=== PATIENT | female | born 1975 | race Caucasian/White ===

== ENCOUNTER 2018-01-22 19:47 | Emergency (ER) | payer BC ==
--- NOTE | 2018-01-22 21:47 | EDPHYS ---
Physician Documentation [facility] Name: Jazmin Erickson Age: 42 yrs Sex: Female : 1975 Arrival Date: 01/22/2018 Time: 19:52 Bed 20 Private MD: ED Physician Brigido Frias HPI: 01/22 21:02 This 42 yrs old Female presents to ER via Ambulatory with complaints of jr8 Finger Injury. 21:02 The patient or guardian reports pain, swelling, tenderness. The complaints affect the jr8 right middle finger . Context: The problem was sustained at home, resulted from a crush injury, a direct blow. Onset: The symptoms/episode began/occurred acutely, 1 week(s) ago. Modifying factors: The symptoms are alleviated by nothing, the symptoms are aggravated by movement. Associated signs and symptoms: The patient has no apparent associated signs or symptoms. Severity of symptoms: At their worst the symptoms were mild, in the emergency department the symptoms are unchanged. The patient has not experienced similar symptoms in the past. The patient has not recently seen a physician. Patient stated that she smashed her finger about 1 week ago. Stated that she did not think anything of it until today when she noticed it swelling again. Continued to have pain but bruising has improved . 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 - Social history:: Smoking status: Patient/guardian denies using tobacco. ROS: 21:02 Eyes: Negative for injury, pain, redness, and discharge, ENT: Negative for injury, jr8 pain, and discharge, Neck: Negative for injury, pain, and swelling, Cardiovascular: Negative for chest pain, palpitations, and edema, Respiratory: Negative for shortness of breath, cough, wheezing, and pleuritic chest pain, Abdomen/GI: Negative for abdominal pain, nausea, vomiting, diarrhea, and constipation, Back: Negative for injury and pain, Skin: Negative for injury, rash, and discoloration, Neuro: Negative for headache, weakness, numbness, tingling, and seizure. 21:02 MS/extremity: Positive for ecchymosis, pain, swelling, tenderness, of the right middle finger . Exam: 21:02 Eyes: Pupils equal round and reactive to light, extra-ocular motions intact. Lids and jr8 lashes normal. Conjunctiva and sclera are non-icteric and not injected. Cornea within normal limits. Periorbital areas with no swelling, redness, or edema. ENT: Nares patent. No nasal discharge, no septal abnormalities noted. Tympanic membranes are normal and external auditory canals are clear. Oropharynx with no redness, swelling, or masses, exudates, or evidence of obstruction, uvula midline. Mucous membranes moist. Neck: Trachea midline, no thyromegaly or masses palpated, and no cervical lymphadenopathy. Supple, full range of motion without nuchal rigidity, or vertebral point tenderness. No Meningismus. Cardiovascular: Regular rate and rhythm with a normal S1 and S2. No gallops, murmurs, or rubs. Normal PMI, no JVD. No pulse deficits. Respiratory: Lungs have equal breath sounds bilaterally, clear to auscultation and percussion. No rales, rhonchi or wheezes noted. No increased work of breathing, no retractions or nasal flaring. Abdomen/GI: Soft, non-tender, with normal bowel sounds. No distension or tympany. No guarding or rebound. No evidence of tenderness throughout. Back: No spinal tenderness. No costovertebral tenderness. Full range of motion. Skin: Warm, dry with normal turgor. Normal color with no rashes, no lesions, and no evidence of cellulitis. Neuro: Awake and alert, GCS 15, oriented to person, place, time, and situation. Cranial nerves II-XII grossly intact. Motor strength 5/5 in all extremities. Sensory grossly intact. Cerebellar exam normal. Normal gait. 21:02 Musculoskeletal/extremity: Extremities: grossly normal except: noted in the right middle finger : ecchymosis, pain, swelling, tenderness, ROM: intact in all extremities, Circulation is intact in all extremities. Sensation intact. no obvious deformity noted on exam . Vital Signs: 20:21 BP 135 / 80; Pulse 76; Resp 18; Temp 98.2; Pulse Ox 100% on R/A; Weight 52.16 kg; aj Height 4 ft. 11 in. (149.86 cm); Pain 6/10; 21:32 BP 119 / 76; Pulse 69; Resp 16; Pulse Ox 99% on R/A; mt 20:21 Body Mass Index 23.23 (52.16 kg, 149.86 cm) aj MDM: 20:43 Patient medically screened. jr8 21:46 Data reviewed: vital signs, nurses notes, radiologic studies, plain films, and as a jr8 result, I will discharge patient. Data interpreted: Pulse oximetry: on room air is 99 %. Interpretation: normal. Counseling: I had a detailed discussion with the patient and/or guardian regarding: the historical points, exam findings, and any diagnostic results supporting the discharge/admit diagnosis, radiology results, the need for outpatient follow up, a orthopedic surgeon, to return to the emergency department if symptoms worsen or persist or if there are any questions or concerns that arise at home. 01/22 20:23 Order name: XRAY Hand RIGHT 3 View aj Administered Medications: No medications were administered Disposition: 01/23 07:57 Co-signature as Attending Physician, Brigido Frias MD I agree with the assessment and everett plan of care. Disposition: 01/22/18 21:46 Discharged to Home. Impression: Contusion of finger without damage to nail. - Condition is Stable. - Discharge Instructions: Contusion. - Medication Reconciliation Form, Thank You Letter, Antibiotic Education, Prescription Opioid Use form. - Follow up: Catalino Delaney MD; When: 7 - 10 days; Reason: If symptoms return, Recheck today's complaints, Continuance of care, Re-evaluation by your physician. - Problem is new. - Symptoms have improved. Signatures: Dispatcher [employer] Kamilah Richards, RN Brigido Wilkins MD MD cha Roszak, Josh, PA PA jr8 Sadiq Sultana, RN RN bp
--- NOTE | 2018-01-22 21:47 | ER ---
Nurse's Notes [facility] Name: Jazmin Erickson Age: 42 yrs Sex: Female : 1975 Arrival Date: 01/22/2018 Time: 19:52 Bed 20 Private MD: Diagnosis: Contusion of finger without damage to nail Presentation: 01/22 20:20 Presenting complaint: Patient states: Crushed right 3 rd digit 5 days ago between metal aj pot and steel grating. Reports pain increased today. Swelling present. Transition of care: patient was not received from another setting of care. Onset of symptoms was January 17, 2018. Initial Sepsis Screen: Does the patient meet any 2 criteria? No. Patient's initial sepsis screen is negative. Does the patient have a suspected source of infection? No. Patient's initial sepsis screen is negative. Care prior to arrival: None. 20:20 Method Of Arrival: Ambulatory 20:20 Acuity: ILYA 4 aj Triage Assessment: 20:21 General: Appears in no apparent distress. comfortable, Behavior is calm, cooperative, aj appropriate for age. Pain: Complains of pain in dorsal aspect of middle phalanx of right middle finger Pain currently is 6 out of 10 on a pain scale. Neuro: Level of Consciousness is awake, alert, obeys commands, Oriented to person, place, time, situation. Respiratory: Airway is patent Respiratory effort is even, unlabored, Respiratory pattern is regular, symmetrical. Derm: Skin is intact, is healthy with good turgor, Skin is pink, warm \T\ dry. normal. Musculoskeletal: Range of motion: intact in all extremities, Swelling present in dorsal aspect of middle phalanx of right middle finger. Injury Description: Bruise sustained to dorsal aspect of middle phalanx of right middle finger. 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 - Social history:: Smoking status: Patient/guardian denies using tobacco. Screenin:47 Abuse screen: Denies threats or abuse. Denies injuries from another. Nutritional bp screening: No deficits noted. Tuberculosis screening: No symptoms or risk factors identified. Fall Risk None identified. Assessment: 20:45 Reassessment: RECD 42YO WF AMBULATORY FROM TRIAGE, C/O R 3RD FINGER PAIN x1WK AFTER bp CRUSH INJURY. PT FINGER NEURO INTACT. General: Appears in no apparent distress. comfortable, Behavior is calm, cooperative, appropriate for age. Pain: Complains of pain in dorsal aspect of middle phalanx of right middle finger and dorsal aspect of proximal phalanx of right middle finger. Neuro: Level of Consciousness is awake, alert, obeys commands, Oriented to person, place, time, situation, Appropriate for age. Cardiovascular: No deficits noted. Respiratory: Airway is patent Respiratory effort is even, unlabored, Respiratory pattern is regular, symmetrical. GI: No signs and/or symptoms were reported involving the gastrointestinal system. : No signs and/or symptoms were reported regarding the genitourinary system. EENT: No signs and/or symptoms were reported regarding the EENT system. Derm: No signs and/or symptoms reported regarding the dermatologic system. Musculoskeletal: Circulation, motion, and sensation intact. Range of motion: intact in all extremities. 21:54 Reassessment: PT D/C HOME AMBULATORY, DX WITH CONTUSION OF FINGER. bp Vital Signs: 20:21 BP 135 / 80; Pulse 76; Resp 18; Temp 98.2; Pulse Ox 100% on R/A; Weight 52.16 kg; aj Height 4 ft. 11 in. (149.86 cm); Pain 6/10; 21:32 BP 119 / 76; Pulse 69; Resp 16; Pulse Ox 99% on R/A; mt 20:21 Body Mass Index 23.23 (52.16 kg, 149.86 cm) aj ED Course: 19:52 Patient arrived in ED. al2 20:21 Triage completed. aj 20:21 Arm band placed on left wrist. Patient placed in waiting room, Patient notified of wait aj time. X-ray ordered. 20:38 Sadiq Sultana, JUDITH is Primary Nurse. bp 20:42 Kamran Rios PA is PHCP. jr8 20:42 Brigido Frias MD is Attending Physician. jr8 20:47 Patient has correct armband on for positive identification. Bed in low position. Call bp light in reach. Side rails up X2. 21:22 X-ray completed. Portable x-ray completed in exam room. Patient tolerated procedure ag1 well. 21:23 XRAY Hand RIGHT 3 View In Process Unspecified. EDMS 21:46 Catalino Delaney MD is Referral Physician. jr8 21:55 No provider procedures requiring assistance completed. Patient did not have IV access bp during this emergency room visit. Administered Medications: No medications were administered Outcome: :46 Discharge ordered by . christine 21:55 Discharged to home ambulatory. bp 21:55 Condition: stable 21:55 Discharge instructions given to patient, Instructed on discharge instructions, follow up and referral plans. Demonstrated understanding of instructions, follow-up care. 21:55 Patient left the ED. bp Signatures: Dispatcher [employer] EDLA Kamilah Reyes, RN RN Kamran De Luna PA PA jr8 Hafsa Lucia1 Jeanine Bañuelos mt, Brian RN RN Bhargavi Ross2
--- NOTE | 2018-01-22 21:58 | RAD REPORT ---
EXAM DESCRIPTION: RAD - Hand Right 3 View - 01/22/2018 9:24 pm CLINICAL HISTORY: Right hand pain status post injury FINDINGS: No fracture or dislocation is seen.
== END 2018-01-22 21:55 | disposition home or self-care (01) ==
LOC: ER 19:47
DX: S60.031A Contusion of right middle finger without damage to nail, initial encounter (principal); W23.0XXA Caught, crushed, jammed, or pinched between moving objects, initial encounter; Y92.019 Unspecified place in single-family (private) house as the place of occurrence of the external cause
CPT/HCPCS: 99283

== ENCOUNTER 2018-03-31 16:33 | Emergency (ER) | payer BC ==
[2018-03-31 17:51] LABS: Urine Blood NEGATIVE (NEG); Urine Glucose NEGATIVE (NEG); Urine Protein NEGATIVE (NEG); Urine Specific Gravity 1.015 (1.005-1.030); Urine pH 6.5 (5.0-7.0)
[2018-03-31] MEDS ORDERED: KETOROLAC 30 MG/ML INJ ONE (17:53)
--- NOTE | 2018-03-31 18:02 | RAD REPORT ---
EXAM DESCRIPTION: CT - Stone Protocol - 03/31/2018 5:44 pm CLINICAL HISTORY: Abdominal pain. Left flank pain COMPARISON: January 2017 TECHNIQUE: Computed axial tomography of the abdomen pelvis was obtained without oral or IV contrast. Lack of IV and oral contrast limits evaluation of solid organs, bowel, and vessels. Coronal reformat derrell images were obtained and reviewed. All CT scans are performed using dose optimization technique as appropriate and may include automated exposure control or mA/KV adjustment according to patient size. FINDINGS: A renal calculus is not seen. An ureteral calculus is not noted. A bladder calculus is not present. The liver, spleen, pancreas and adrenals appear grossly normal There is no evidence of diverticulitis. The appendix appears normal A 38 millimeter cystic right adnexal mass is present. Significant free fluid is not noted IMPRESSION: Negative for a genitourinary calculus 38 millimeter right adnexal mass may represent an ovarian cyst. Followup ultrasound in a couple month s is recommended to assess stability/resolution
--- NOTE | 2018-03-31 18:14 | EDPHYS ---
Physician Documentation [facility] Name: Jazmin Erickson Age: 42 yrs Sex: Female : 1975 Arrival Date: 03/31/2018 Time: 16:36 Bed 28 Private MD: None, None ED Physician Peng Ramirez HPI: 03/31 18:07 This 42 yrs old Female presents to ER via Ambulatory with complaints of Flank gs Pain. 18:07 The patient complains of pain in the left low back. The pain radiates to the left lower gs quadrant. Onset: The symptoms/episode began/occurred 2 day(s) ago. Modifying factors: The symptoms are alleviated by nothing. the symptoms are aggravated by nothing. Associated signs and symptoms: Pertinent negatives: fever, urinary frequency. Severity of pain: At its worst the pain was moderate in the emergency department the pain has improved mildly. The patient has experienced similar episodes in the past, a few times. 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 - Social history:: Smoking status: Patient/guardian denies using tobacco, Patient/guardian denies using alcohol. - Ebola Screening: : Patient negative for fever greater than or equal to 101.5 degrees Fahrenheit, and additional compatible Ebola Virus Disease symptoms Patient denies exposure to infectious person Patient denies travel to an Ebola-affected area in the 21 days before illness onset. ROS: 18:07 All other systems are negative. gs 18:15 Abdomen/GI: Negative for bowel incontinence. gs 18:15 : Negative for bladder incontinence. Exam: 18:07 Head/Face: Normocephalic, atraumatic. Eyes: Pupils equal round and reactive to light, gs extra-ocular motions intact. Lids and lashes normal. Conjunctiva and sclera are non-icteric and not injected. Cornea within normal limits. Periorbital areas with no swelling, redness, or edema. ENT: Nares patent. No nasal discharge, no septal abnormalities noted. Tympanic membranes are normal and external auditory canals are clear. Oropharynx with no redness, swelling, or masses, exudates, or evidence of obstruction, uvula midline. Mucous membranes moist. Neck: Trachea midline, no thyromegaly or masses palpated, and no cervical lymphadenopathy. Supple, full range of motion without nuchal rigidity, or vertebral point tenderness. No Meningismus. Chest/axilla: Normal chest wall appearance and motion. Nontender with no deformity. No lesions are appreciated. Cardiovascular: Regular rate and rhythm with a normal S1 and S2. No gallops, murmurs, or rubs. Normal PMI, no JVD. No pulse deficits. Respiratory: Lungs have equal breath sounds bilaterally, clear to auscultation and percussion. No rales, rhonchi or wheezes noted. No increased work of breathing, no retractions or nasal flaring. Abdomen/GI: Soft, non-tender, with normal bowel sounds. No distension or tympany. No guarding or rebound. No evidence of tenderness throughout. Back: No spinal tenderness. No costovertebral tenderness. Full range of motion. Skin: Warm, dry with normal turgor. Normal color with no rashes, no lesions, and no evidence of cellulitis. MS/ Extremity: Pulses equal, no cyanosis. Neurovascular intact. Full, normal range of motion. Neuro: Awake and alert, GCS 15, oriented to person, place, time, and situation. Cranial nerves II-XII grossly intact. Motor strength 5/5 in all extremities. Sensory grossly intact. Cerebellar exam normal. Normal gait. 18:07 Constitutional: The patient appears alert, awake. Vital Signs: 16:39 BP 123 / 77; Pulse 84; Resp 18; Temp 98.3(O); Pulse Ox 98% on R/A; Weight 52.16 kg; Height 4 ft. 11 in. (149.86 cm); Pain 8/10; 17:54 BP 108 / 70; Pulse 58; Resp 18; Pulse Ox 98% ; tl3 18:43 BP 106 / 72; Pulse 56; Resp 18; Pulse Ox 99% ; tl3 16:39 Body Mass Index 23.23 (52.16 kg, 149.86 cm) MDM: 16:56 Patient medically screened. 18:07 Differential diagnosis: nephrolithiasis, pyelonephritis, back sprain. Data reviewed: vital signs, nurses notes. Response to treatment: the patient's symptoms have markedly improved after treatment. 03/31 17:42 Order name: Urine Dipstick--Ancillary (enter results); Complete Time: 17:59 ag 03/31 17:42 Order name: Urine --Ancillary (enter results); Complete Time: 17:59 ag 03/31 16:41 Order name: Urine Dipstick-Ancillary (obtain specimen); Complete Time: 18:45 hj 03/31 16:58 Order name: CT Stone Protocol; Complete Time: 18:07 Administered Medications: 17:54 Drug: TORadol 30 mg Route: IM; Site: right gluteus; tl3 18:44 Follow up: Response: Pain is decreased tl3 Disposition: 03/31/18 18:13 Discharged to Home. Impression: Low back pain. - Condition is Stable. - Discharge Instructions: Back Pain, Adult. - Prescriptions for Naprosyn 500 mg Oral Tablet - take 1 tablet by ORAL route 2 times per day As needed take with food; 30 tablet. - Medication Reconciliation Form, Thank You Letter, Antibiotic Education, Prescription Opioid Use form. - Follow up: Private Physician; When: 2 - 3 days; Reason: Re-evaluation by your physician. Signatures: Dispatcher [employer] EDNM Lio Garcia RN RN Peng Ramirez MD MD Thelma Hunt RN RN tl3 Corrections: (The following items were deleted from the chart) 18:46 18:13 03/31/2018 18:13 Discharged to Home. Impression: Low back pain. Condition is tl3 Stable. Forms are Medication Reconciliation Form, Thank You Letter, Antibiotic Education, Prescription Opioid Use. Follow up: Private Physician; When: 2 - 3 days; Reason: Re-evaluation by your physician.
--- NOTE | 2018-03-31 18:14 | ER ---
Nurse's Notes [facility] Name: Jazmin Erickson Age: 42 yrs Sex: Female : 1975 Arrival Date: 03/31/2018 Time: 16:36 Bed 28 Private MD: None, None Diagnosis: Low back pain Presentation: 03/31 16:36 Presenting complaint: Patient states: i started having L lower flank pain that started hj last Saturday, denies burning urination, reports chills; denies blood in urine; reports nausea;. Transition of care: patient was not received from another setting of care. Onset of symptoms was March 31, 2018. Risk Assessment: Do you want to hurt yourself or someone else? Patient reports no desire to harm self or others. Initial Sepsis Screen: Does the patient meet any 2 criteria? No. Patient's initial sepsis screen is negative. Does the patient have a suspected source of infection? No. Patient's initial sepsis screen is negative. Care prior to arrival: None. 16:36 Method Of Arrival: Ambulatory 16:36 Acuity: ILYA 3 hj Triage Assessment: 16:38 General: Appears in no apparent distress. uncomfortable, Behavior is calm, cooperative, hj appropriate for age. Pain: Complains of pain in left low back Pain currently is 8 out of 10 on a pain scale. 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 - Social history:: Smoking status: Patient/guardian denies using tobacco, Patient/guardian denies using alcohol. - Ebola Screening: : Patient negative for fever greater than or equal to 101.5 degrees Fahrenheit, and additional compatible Ebola Virus Disease symptoms Patient denies exposure to infectious person Patient denies travel to an Ebola-affected area in the 21 days before illness onset. Screenin:38 Abuse screen: Denies threats or abuse. Denies injuries from another. Nutritional hj screening: No deficits noted. Tuberculosis screening: No symptoms or risk factors identified. Fall Risk None identified. Assessment: 16:49 General: Appears uncomfortable, slender, well groomed, well developed, well nourished, tl3 Behavior is calm, cooperative, appropriate for age. Pain: Complains of pain in back and left low back. Neuro: Level of Consciousness is awake, alert, obeys commands, Oriented to person, place, time, situation, Appropriate for age. Cardiovascular: Heart tones S1 S2 present Patient's skin is warm and dry. Respiratory: Airway is patent Respiratory effort is even, unlabored, Respiratory pattern is regular, symmetrical, Breath sounds are clear bilaterally. GI: No signs and/or symptoms were reported involving the gastrointestinal system. : Reports pain in left flank(s), since Saturday urinary frequency. EENT: No signs and/or symptoms were reported regarding the EENT system. Derm: No signs and/or symptoms reported regarding the dermatologic system. Musculoskeletal: No signs and/or symptoms reported regarding the musculoskeletal system. 17:54 Reassessment: Patient appears in no apparent distress at this time. No changes from tl3 previously documented assessment. Patient and/or family updated on plan of care and expected duration. Pain level reassessed. Patient is alert, oriented x 3, equal unlabored respirations, skin warm/dry/pink. 18:43 Reassessment: Patient appears in no apparent distress at this time. No changes from tl3 previously documented assessment. Patient and/or family updated on plan of care and expected duration. Pain level reassessed. Patient is alert, oriented x 3, equal unlabored respirations, skin warm/dry/pink. Vital Signs: 16:39 BP 123 / 77; Pulse 84; Resp 18; Temp 98.3(O); Pulse Ox 98% on R/A; Weight 52.16 kg; hj Height 4 ft. 11 in. (149.86 cm); Pain 8/10; 17:54 BP 108 / 70; Pulse 58; Resp 18; Pulse Ox 98% ; tl3 18:43 BP 106 / 72; Pulse 56; Resp 18; Pulse Ox 99% ; tl3 16:39 Body Mass Index 23.23 (52.16 kg, 149.86 cm) ED Course: 16:36 Patient arrived in ED. mr 16:36 None, None is Private Physician. mr 16:37 Triage completed. hj 16:38 Arm band placed on right wrist. hj 16:40 Patient has correct armband on for positive identification. Placed in gown. Bed in low hj position. Call light in reach. Side rails up X 1. 16:48 Peng Ramirez MD is Attending Physician. 16:49 Thelma Hunt, RN is Primary Nurse. tl3 16:49 No provider procedures requiring assistance completed. tl3 17:[address] 17:44 CT completed. Patient tolerated procedure well. Patient moved back from CT. vm2 17:45 CT Stone Protocol In Process Unspecified. EDMS 18:43 Patient did not have IV access during this emergency room visit. tl3 Administered Medications: 17:54 Drug: TORadol 30 mg Route: IM; Site: right gluteus; tl3 18:44 Follow up: Response: Pain is decreased tl3 Outcome: 18:13 Discharge ordered by . 18:43 Discharged to home ambulatory. tl3 18:43 Condition: good 18:43 Discharge instructions given to patient, Instructed on discharge instructions, follow up and referral plans. medication usage, Demonstrated understanding of instructions, follow-up care, medications, Prescriptions given X 1. 18:46 Patient left the ED. tl3 Signatures: Dispatcher [employer] EDLA AmatoSolange mr Duarte Sandy Lio Cifuentes RN RN Tatiana Feliciano 2 Peng Ramirez MD MD Thelma Hunt, RN RN tl3 Corrections: (The following items were deleted from the chart) 16:41 16:39 Pulse 84bpm; Resp 18bpm; Pulse Ox 98% RA; Temp 98.3F Oral; 52.16 kg; Height 4 ft. hj 11 in.; BMI: 23.2; Pain 8/10; hj
== END 2018-03-31 18:46 | disposition home or self-care (01) ==
LOC: ER 16:33
DX: M54.5 Low back pain (principal)
CPT/HCPCS: 74176; 76377; 81003; 81025; 96372; 99284

== ENCOUNTER 2019-07-20 10:08 | Emergency (ER) | payer BC, OTHER ==
[2019-07-20] MEDS ORDERED: PHENAZOPYRIDINE 100MG TAB PO ONE (10:36)
[2019-07-20 11:07] LABS: Urine Bacteria 20-50 /HPF (<20); Urine Culture Reflex Order REFLEXED; Urine RBC >50 /HPF (NONE SEEN)
--- NOTE | 2019-07-20 11:19 | RAD REPORT ---
EXAM DESCRIPTION: CT - Stone Protocol - 07/20/2019 10:48 am CLINICAL HISTORY: Dysuria, pelvic pain and pressure, prior hysterectomy COMPARISON: CT March 2018, January 2017 TECHNIQUE: Axial 3 mm thick images were obtained without oral or IV contrast. The [id number] span s the entirety of the system including uppermost abdomen and lung bases. All CT scans are performed using dose optimization technique as appropriate and may include automated exposure control or mA/KV adjustment according to patient size. FINDINGS: No hydronephrosis is present and no obstructing ureteral calculi. No suspicious renal mass es. Isodense masses and pyelonephritis are not excluded on a stone protocol CT scan. Urinary bladder is mostly contracted limiting assessment. No bladder calculi seen. There are numerous phleboliths braden ng the pelvic floor. No significant adrenal finding. Uterus is absent. No left ovary abnormality seen . In the anterior right adnexa there is a 3.1 centimeter cyst unchanged from March 2018 and probably u nchanged from January 2017. This is to be a persistent ovarian or paraovarian cyst. Small calcification a long the right lateral margin is present at the capsule. This is potentially calcification in the rou nd ligament rather than the cyst. No fat component. Imaged portions of the liver, spleen and pancreas show no suspicious findings on non-contrast imaging . No gallbladder or biliary tree abnormality identified. No suspicious bowel findings. Moderately large stool volume present in the right-side of the colon. P atient has a low-lying transverse colon. Hyperdensity of the left-side bowel content may indicate ing ested medication. Patient did not receive any oral contrast for this study. No hernia, mass or bulky lymphadenopathy noted. No free air, free fluid or inflammatory stranding. No significant bony abnormality. IMPRESSION: No hydronephrosis, obstructing calculus or acute finding seen. Isodense masses and pyelonephritis are not excluded on stone protocol technique. No acute finding identified on this study. Nonacute findings are detailed in the body of the report w ith no significant change dating back to at least March 2018.
--- NOTE | 2019-07-20 11:37 | ER ---
Nurse's Notes [facility] Name: Jazmin Erickson Age: 44 yrs Sex: Female : 1975 Arrival Date: 07/20/2019 Time: 10:11 Bed 15 Private MD: Diagnosis: Urinary tract infection, site not specified Presentation: 07/20 10:19 Presenting complaint: Patient states: "I feel like I have to go to the bathroom jl7 constantly." x 1 week, constant pressure, denies burning. Transition of care: patient was not received from another setting of care. Onset of symptoms was July 13, 2019. Risk Assessment: Do you want to hurt yourself or someone else? Patient reports no desire to harm self or others. Initial Sepsis Screen: Does the patient meet any 2 criteria? No. Patient's initial sepsis screen is negative. Does the patient have a suspected source of infection? No. Patient's initial sepsis screen is negative. Care prior to arrival: None. 10:19 Method Of Arrival: Ambulatory jl7 10:31 Acuity: ILYA 3 tw2 TELEPATHIST: 10:20 LMP N/A - Hysterectomy jl7 Historical: - Allergies: 10:20 VENLAFAXINE; jl7 - Home Meds: 10:20 None [Active]; jl7 - PMHx: 10:20 None; jl7 - PSHx: 10:20 Hysterectomy; jl7 - Immunization history:: Adult Immunizations not up to date. - Social history:: Smoking status: Patient/guardian denies using tobacco. - Ebola Screening: : No symptoms or risks identified at this time. Screenin:27 Abuse screen: Denies threats or abuse. Nutritional screening: No deficits noted. tw2 Tuberculosis screening: No symptoms or risk factors identified. Fall Risk None identified. Assessment: 10:28 General: Appears in no apparent distress. Behavior is calm, cooperative, appropriate tw2 for age. Pain: Complains of pain in right upper quadrant and right lower quadrant. Neuro: Level of Consciousness is awake, alert, obeys commands, Oriented to person, place, time, situation. Cardiovascular: Heart tones S1 S2 Patient's skin is warm and dry. Respiratory: Airway is patent Respiratory effort is even, unlabored, Respiratory pattern is regular, symmetrical, Breath sounds are clear bilaterally. GI: Abdomen is flat, Bowel sounds present X 4 quads. Reports lower abdominal pain, upper abdominal pain. : Reports urinary frequency. EENT: No signs and/or symptoms were reported regarding the EENT system. Derm: No signs and/or symptoms reported regarding the dermatologic system. Musculoskeletal: Range of motion: intact in all extremities. 10:28 Reassessment: pt drinking starbucks coffee at this time, pt asked to not drink or eat tw2 anything until seen by a provider, pt agreeable. 10:31 Reassessment: provider at bedside at this time. tw2 Vital Signs: 10:20 BP 126 / 72; Pulse 75; Resp 16; Temp 97.9(O); Pulse Ox 100% on R/A; jl7 11:49 BP 108 / 69; Pulse 74; Resp 16 S; Pulse Ox 100% on R/A; jl7 ED Course: 10:11 Patient arrived in ED. mr 10:15 Adri[facility] Peterson [facility]C [facility] kb 10:15 Eagle Gloria MD is Attending Physician. kb 10:20 Triage completed. jl7 10:20 Arm band placed on right wrist. jl7 10:26 Phuong Olsen, RN is Primary Nurse. tw2 10:27 Bed in low position. Call light in reach. tw2 10:48 CT completed. Patient tolerated procedure well. Patient moved back from CT. jj2 10:48 CT Stone Protocol In Process Unspecified. EDMS 11:49 No provider procedures requiring assistance completed. Patient did not have IV access jl7 during this emergency room visit. Administered Medications: 10:39 Drug: Pyridium 200 mg Route: PO; tw2 11:49 Follow up: Response: No adverse reaction jl7 11:49 Drug: Macrobid 100 mg Route: PO; jl7 11:49 Follow up: Response: Medication administered at discharge. jl7 Outcome: 11:35 Discharge ordered by . kb 11:50 Discharged to home ambulatory. jl7 11:50 Condition: stable 11:50 Discharge instructions given to patient, Instructed on discharge instructions, follow up and referral plans. medication usage, Demonstrated understanding of instructions, follow-up care, medications, Prescriptions given X 2. 11:50 Patient left the ED. jl7 Signatures: Dispatcher [employer] EDMS Adrianna Peterson FNP-C FNP-Ckb Rivera, Mary mr Ferrera, Nic jj2 Phuong Olsen RN RN tw2 Cinda Cordoba RN RN jl7 Corrections: (The following items were deleted from the chart) 10:31 10:19 Acuity: ILYA 4 jl7 tw2
--- NOTE | 2019-07-20 11:37 | EDPHYS ---
Physician Documentation [facility] Name: Jazmin Erickson Age: 44 yrs Sex: Female : 1975 Arrival Date: 07/20/2019 Time: 10:11 Bed 15 Private MD: ED Physician Eagle Gloria HPI: 07/20 11:32 This 44 yrs old Female presents to ER via Ambulatory with complaints of kb Urinary Problem. 11:32 The patient presents with urinary symptoms, frequency, hematuria, urgency. Onset: The kb symptoms/episode began/occurred 1 week(s) ago. Modifying factors: The symptoms are alleviated by nothing, the symptoms are aggravated by nothing. Associated signs and symptoms: Pertinent positives: hematuria, urinary frequency, Pertinent negatives: fever. Severity of symptoms: At their worst the symptoms were moderate, in the emergency department the symptoms are unchanged. The patient has not experienced similar symptoms in the past. The patient has not recently seen a physician. Pt reports urinary frequency, urgency and hematuria that started a week ago. States she tried drinking cranberry juice and more water but symptoms are getting worse. Reports suprapubic pain as well. Reports RUQ pain that is chronic due to gallbladder. States it flares up when she is stressed or eats the wrong thing. Reports she is under stress right now because she is going through menopause and it is causing a lot of hot flashes and emotional stress. . 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 - Social history:: Smoking status: Patient/guardian denies using tobacco. - Ebola Screening: : No symptoms or risks identified at this time. ROS: 11:31 Constitutional: Negative for fever, chills, and weight loss, Cardiovascular: Negative kb for chest pain, palpitations, and edema, Respiratory: Negative for shortness of breath, cough, wheezing, and pleuritic chest pain, Back: Negative for injury and pain, MS/Extremity: Negative for injury and deformity, Skin: Negative for injury, rash, and discoloration, Neuro: Negative for headache, weakness, numbness, tingling, and seizure. 11:31 Abdomen/GI: Positive for abdominal pain. 11:31 : Positive for urinary symptoms, urinary frequency, hematuria. Exam: 11:31 Constitutional: This is a well developed, well nourished patient who is awake, alert, kb and in no acute distress. Head/Face: Normocephalic, atraumatic. Neck: Trachea midline, no thyromegaly or masses palpated, and no cervical lymphadenopathy. Supple, full range of motion without nuchal rigidity, or vertebral point tenderness. No Meningismus. Chest/axilla: Normal chest wall appearance and motion. Nontender with no deformity. No lesions are appreciated. Cardiovascular: Regular rate and rhythm with a normal S1 and S2. No gallops, murmurs, or rubs. Normal PMI, no JVD. No pulse deficits. Respiratory: Lungs have equal breath sounds bilaterally, clear to auscultation and percussion. No rales, rhonchi or wheezes noted. No increased work of breathing, no retractions or nasal flaring. Back: No spinal tenderness. No costovertebral tenderness. Full range of motion. Skin: Warm, dry with normal turgor. Normal color with no rashes, no lesions, and no evidence of cellulitis. MS/ Extremity: Pulses equal, no cyanosis. Neurovascular intact. Full, normal range of motion. Neuro: Awake and alert, GCS 15, oriented to person, place, time, and situation. Cranial nerves II-XII grossly intact. Motor strength 5/5 in all extremities. Sensory grossly intact. Cerebellar exam normal. Normal gait. 11:31 Abdomen/GI: Inspection: abdomen appears normal, Bowel sounds: normal, in all quadrants, Palpation: soft, in all quadrants, mild abdominal tenderness, in the right upper quadrant, moderate abdominal tenderness, in the suprapubic area. Vital Signs: 10:20 BP 126 / 72; Pulse 75; Resp 16; Temp 97.9(O); Pulse Ox 100% on R/A; jl7 11:49 BP 108 / 69; Pulse 74; Resp 16 S; Pulse Ox 100% on R/A; jl7 MDM: 10:26 Patient medically screened. 11:31 Data reviewed: vital signs, nurses notes. Data interpreted: Pulse oximetry: on room air kb is 100 %. Interpretation: normal. Counseling: I had a detailed discussion with the patient and/or guardian regarding: the historical points, exam findings, and any diagnostic results supporting the discharge/admit diagnosis, lab results, radiology results, the need for outpatient follow up, a family practitioner, to return to the emergency department if symptoms worsen or persist or if there are any questions or concerns that arise at home. 07/20 10:27 Order name: Urine Microscopic Only; Complete Time: 11:13 kb 07/20 10:37 Order name: Urine Dipstick--Ancillary (enter results) bd 07/20 10:35 Order name: CT Stone Protocol; Complete Time: 11:21 kb 07/20 11:09 Order name: Urine Culture EDPR 07/20 10:27 Order name: Urine Test (obtain specimen); Complete Time: 10:32 kb 07/20 10:27 Order name: Urine Dipstick-Ancillary (obtain specimen); Complete Time: 10:32 kb Administered Medications: 10:39 Drug: Pyridium 200 mg Route: PO; tw2 11:49 Follow up: Response: No adverse reaction jl7 11:49 Drug: Macrobid 100 mg Route: PO; jl7 11:49 Follow up: Response: Medication administered at discharge. jl7 Disposition: 12:12 Co-signature as Attending Physician, Eagle Gloria MD. rn Disposition: 07/20/19 11:35 Discharged to Home. Impression: Urinary tract infection, site not specified. - Condition is Stable. - Discharge Instructions: Urinary Tract Infection, Adult, [id number]. - Prescriptions for Pyridium 200 mg Oral Tablet - take 1 tablet by ORAL route every 8 hours for 3 days; 9 tablet. Macrobid 100 mg Oral Capsule - take 1 capsule by ORAL route every 12 hours for 10 days; 20 capsule. - Medication Reconciliation Form, Thank You Letter, Antibiotic Education, Prescription Opioid Use, Work release form form. - Follow up: Emergency Department; When: As needed; Reason: Worsening of condition. Follow up: Private Physician; When: 2 - 3 days; Reason: Recheck today's complaints, Continuance of care, Re-evaluation by your physician. Signatures: Dispatcher [facility] Adrianna Peterson, AQUARIST-C AQUARIST-Eagle Booker MD MD rn Wise, Tara, RN RN tw2 Cinda Cordoba RN RN jl7 Corrections: (The following items were deleted from the chart) 11:37 11:32 Pt reports urinary frequency, urgency and hematuria that started a week ago. kb States she tried drinking cranberry juice and more water but symptoms are getting worse. Reports suprapubic pain as well. kb 11:50 11:35 07/20/2019 11:35 Discharged to Home. Impression: Urinary tract infection, site jl7 not specified. Condition is Stable. Forms are Work release form, Medication Reconciliation Form, Thank You Letter, Antibiotic Education, Prescription Opioid Use. Follow up: Emergency Department; When: As needed; Reason: Worsening of condition. Follow up: Private Physician; When: 2 - 3 days; Reason: Recheck today's complaints, Continuance of care, Re-evaluation by your physician. kb
[2019-07-20] MEDS ORDERED: NITROFURAN MACRO 100 MG CAP PO ONE (11:45)
[2019-07-20 12:06] VITALS: TEMP 97.9; O2SAT 100
[2019-07-20 12:07] VITALS: BP 108/69
[2019-07-20 14:36] LABS: Urine Blood 3+ (NEG); Urine Glucose NEGATIVE (NEG); Urine Protein 3+ (NEG); Urine Specific Gravity 1.025 (1.005-1.030); Urine pH 5.5 (5.0-7.0)
== END 2019-07-20 11:50 | disposition home or self-care (01) ==
LOC: ER 10:08
DX: N39.0 Urinary tract infection, site not specified (principal); Z88.8 Allergy status to other drugs, medicaments and biological substances
CPT/HCPCS: 74176; 76377; 81003; 81015; 87086; 87088; 99284

== ENCOUNTER 2019-10-07 06:15 | Day surgery (SDC) | payer OTHER ==
[2019-10-06 09:26] LABS: Urine Appearance CLEAR; Urine Bilirubin NEGATIVE (NEG); Urine Blood NEGATIVE (NEG); Urine Color YELLOW; Urine Glucose NEGATIVE (NEG); Urine Protein NEGATIVE (NEG); Urine Urobilinogen 0.2 mg/dL (0.2-1.0); Urine pH 6.5 (5.0-7.0)
[2019-10-06 09:27] LABS: Absolute Lymphocytes (CBC) 2.4 K/uL (0.7-4.9); Basophils % 0.6 % (0-1.3); Lymphocytes % 36.2 % (15.3-44.8); MPV 8.8 fL (7.6-11.3); RBC Red Blood Cell Count 4.88 M/uL (3.86-4.86)
[2019-10-06 09:36] LABS: Urine Microscopic Reflex NO UMIC
[2019-10-07] MEDS ORDERED: SCOPOLAMINE HYDROBROMIDE PATCH TD ONE (06:55)
[2019-10-07] MEDS ORDERED: Ringers Lactate 1,000 ML IV ONE ×2 (06:55→09:19)
[2019-10-07] MEDS ORDERED: BUPIVACAINE 0.25% PF 30 ML VIAL ONE (07:11)
[2019-10-07] MEDS ORDERED: propofoL 200 MG/20 ML VIAL IV ONE (07:22)
[2019-10-07] MEDS ORDERED: dexAMETHasone 10 MG/ML VIAL ONE (07:22)
[2019-10-07] MEDS ORDERED: FENTANYL CITR 100 MCG/2 ML ONE ×2 (07:22→08:35)
[2019-10-07] MEDS ORDERED: ROCURONIUM 50 MG/5 ML VIAL IV ONE (07:22)
[2019-10-07] MEDS ORDERED: NS 0.9% VIAL 0 ML ONE (07:23)
[2019-10-07] MEDS ORDERED: LIDOCAINE 2% MPF 5 ML VIAL ONE (07:23)
[2019-10-07] MEDS ORDERED: DIPHENHYDRAMINE 50 MG/ML VIAL ONE (07:23)
[2019-10-07] MEDS ORDERED: MIDAZOLAM HCL 2 MG/2 ML INJ ONE (07:23)
[2019-10-07] MEDS ORDERED: VECURONIUM 10 MG/VIAL IV ONE (07:24)
[2019-10-07] MEDS ORDERED: ONDANSETRON 4 MG/2 ML VIAL ONE (07:24)
[2019-10-07] MEDS ORDERED: KETOROLAC 30 MG/ML INJ ONE (09:12)
[2019-10-07] MEDS ORDERED: GLYCOPYRROLATE 0.2 MG/ML SYR ONE (09:17)
[2019-10-07] MEDS ORDERED: NEOSTIGMINE 1 MG/ML -5 ML ONE (09:17)
[2019-10-07] MEDS ORDERED: Mastisol Adhesive Liq ONE (09:26)
[2019-10-07] MEDS ORDERED: HYDROCODONE/APAP 5/325 MG TAB ONE (10:45)
[2019-10-07 12:56] VITALS: BP 114/70; TEMP 98.3; O2SAT 98
--- NOTE | 2019-10-07 19:59 | OP ---
Date of Procedure: 10/07/2019 Surgeon: Kiki Rivera MD Maintenance Team Member: first drea Polk. Preoperative Diagnoses: Pelvic pain, right adnexal mass, and history of endometriosis. Postoperative Diagnoses: Extensive adhesions of the left tube to the sidewall and the ureter distally, adhesions of the sigmoid and left colon to the left sidewall, and multiple windows in the epiploicae for potential internal hernias. Procedures Performed: Diagnostic laparoscopy, bilateral salpingo-oophorectomy, and extensive lysis of adhesions and removal of epiploicae to resolve the areas for herniation within the sigmoid epiploicae, left ureterolysis Estimated Blood Loss: Minimal. Specimens: Bilateral tubes and ovaries. Complications: No complications. Drains: No drains. Condition: Stable. Indications: 44-year-old was complaining of pelvic pain. She had a vaginal hysterectomy. She was found to have a right adnexal mass that was 3.8 cm. It was followed up for year. Her pain has not resolved, just getting worse, more worse on the right side than on the left at present. She had declined any medical treatment with Depo or like she already has history of depression and these things could make that worse. She did not want to take them. After consenting her for a laparoscopy, bilateral removal of right adnexal mass, removal of endometriosis of present, and BSO, she was brought to the OR. Description Of Procedure: After informed consent was verified, she was taken back to OR, placed in a supine fashion on the operating table with general anesthesia given, placed in a dorsal lithotomy position. Pelvic exam performed. An adnexal mass small 2 and 3 to 4 cm palpable on the right side. SCDs were started. No antibiotics were indicated for this procedure. Abdomen, vulva, vagina, and perineum were prepped and draped in a sterile fashion. Mohr placed to drain the bladder and a sponge on the stick placed in the vagina. 1 cm infraumbilical incision made with a scalpel and fascial edges tagged with 0 Vicryl sutures. Peritoneum entered sharply and S-retractors placed. Jeannette introduced, insufflation done gallbladder, upper abdominal, peritoneal surfaces , omentum unremarkable. Lower abdomen, appendix normal. Adhesions of the large bowel colon to the left sidewall and the top of the vaginal apex as well as to the left tube and ovary, and there were multiple potential areas of herniation caused by the epiploicae adhering to the tube. Adhesions to the sidewall were also noted. Right tubal cyst and paratubal cysts were noted. The ovaries appeared to be unremarkable. 5 mm suprapubic and left ports were placed under direct vision. LigaSure was taken to take down the adhesions at some point. Scissors were used to push spread and remove the adhesions from the sidewall first. Then, adhesions were taken down from the anterior abdominal wall as well then from the vaginal cuff. There was some bleeding and there were multiple areas of potential internal herniation, so these epiploicae were resected and no spaces were left for this. Then, dissection was performed to separate the tube from the epiploicae and the tube from the sidewall. All these adhesions were taken down systematically with push-spread technique. The ureter on the left side had to be dissected and opened up. The peritoneum was opened lateral to the IP ligament and proximal to the pelvic brim and this opening was taken down parallel to the sidewall. Then, the peritoneum on the medial side of the IP was opened up under direct visualization. The ureter was visualized on both sides from the pelvic brim to the ureteric tunnel. On the left side, it was adherent to the distal part close to the ovary and the tube, close to the area of the vaginal cuff, so the IP ligament once was isolated on the left side, this was taken down with the help of the LigaSure. Then, the dissection was performed to separate the anterior leaf of the broad ligament and then this was dissected to separate the tube and ovary from the sidewall, then posteriorly the ureter had to be dissected all the way to the level of the ureteric tunnel and once this was medially, then the ovary and the tube were from the peritoneum with the help of the LigaSure. There were also from the vaginal cuff and the pararectal space on the left side. The specimens were then detached. Then, the right tube was removed. Then, the right ovary was removed after isolating the IP ligament, taking this down, then removing the ovary after detaching it from its adhesions to the round ligament and taking the posterior leaf of the broad ligament attaching the ovary to the sidewall protecting the ureter. All the specimens were placed in an EndoCatch bag and removed through the 10 port, 5 camera was used for me to do this. All the trocars were removed under direct vision and injected with Marcaine at the beginning before insertion and at the end after the removal of the ports at the level of the fascia and the skin and all 3 ports. Then, the specimens were retrieved by pulling out the EndoCatch bag, paratubal cyst was drained and removed, and fascia closed at the umbilicus with the help of the tagged 0 Vicryl sutures. All skin incisions with interrupted 4-0 Vicryl and Steri-Strips placed. Mohr was removed and the sponge on the stick was removed. Instrument, needle, and sponge counts were correct. The patient tolerated the procedure well. She will be discharged home today and she will follow up in 1 week, and we will start her on hormone therapy if she is symptomatic. JUDSON/MARC Voice ID: [id number] Report ID: [id number] JASPAL
== END 2019-10-07 12:55 | disposition home or self-care (01) ==
LOC: PRE 06:15
PROVIDERS: ATTEND Obstetrics & Gynecology
PROC: 0UT74ZZ Resection of Bilateral Fallopian Tubes, Percutaneous Endoscopic Approach (ICD-10-PCS; 2019-10-07)
PROC: 0DNW4ZZ Release Peritoneum, Percutaneous Endoscopic Approach (ICD-10-PCS; 2019-10-07)
PROC: 0UT24ZZ Resection of Bilateral Ovaries, Percutaneous Endoscopic Approach (ICD-10-PCS; principal; 2019-10-07 07:30)
DX: N80.3 Endometriosis of pelvic peritoneum (principal); N83.291 Other ovarian cyst, right side; R10.2 Pelvic and perineal pain; F32.0 Major depressive disorder, single episode, mild; K66.0 Peritoneal adhesions (postprocedural) (postinfection)
CPT/HCPCS: 85025; 36415; 86900; 86850; 86901; 88305; 81003; 58661; 49329; J2704; J1200; J2250; J3010 ×2; J1100; J2710; J7120 ×2; J2405

== ENCOUNTER 2020-10-06 22:56 | Emergency (ER) | payer OTHER ==
[2020-10-07 02:12] LABS: SARS-COV-2 RT PCR NEGATIVE (NEGATIVE)
--- NOTE | 2020-10-07 02:28 | ER ---
Nurse's Notes [facility] Name: Jazmin Erickson Age: 45 yrs Sex: Female : 1975 Arrival Date: 10/06/2020 Time: 22:58 Bed 20 Private MD: Diagnosis: Bronchitis Presentation: 10/06 23:55 Chief complaint: Patient states: C/O cough, sore throat and dizziness for 3 days. Pt wh states Hx of Bronchitis and feels she has one. Coronavirus screen: Client denies travel out of the [place] in the last 14 days. cough unrelated to allergies, sore throat, Client presents with at least one sign or symptom that may indicate coronavirus-19. Standard/surgical mask placed on the client. Provider contacted for isolation considerations. Ebola Screen: Patient negative for fever greater than or equal to 101.5 degrees Fahrenheit, and additional compatible Ebola Virus Disease symptoms Patient denies exposure to infectious person. Initial Sepsis Screen: Does the patient meet any 2 criteria? HR > 90 bpm. Does the patient have a suspected source of infection? Yes: Productive cough/pneumonia. Risk Assessment: Do you want to hurt yourself or someone else? Patient reports no desire to harm self or others. Onset of symptoms was October 06, 2020. 23:55 Method Of Arrival: Ambulatory 23:55 Acuity: ILYA 4 PROCEDURES ANALYST: 10/07 00:04 LMP N/A - Post-menopause Historical: - Allergies: 10/06 23:59 VENLAFAXINE; - Home Meds: 23:59 HRT [Active]; - PMHx: 23:59 Bronchitis; Heart Murmur; - PSHx: 23:59 Tubal ligation; - Immunization history:: Adult Immunizations not up to date. - Social history:: Smoking status: Patient uses street drugs, marijuana, Patient/guardian denies using. Screenin:59 Abuse screen: Denies threats or abuse. Denies injuries from another. Nutritional screening: No deficits noted. Tuberculosis screening: No symptoms or risk factors identified. Fall Risk None identified. Assessment: 23:59 General: Appears in no apparent distress. Behavior is calm, cooperative, appropriate for age. Pain: Complains of pain in sore throat. Neuro: Level of Consciousness is awake, alert, obeys commands, Oriented to person, place, time, situation, Appropriate for age. Cardiovascular: Heart tones S1 S2. Respiratory: Airway is patent Respiratory effort is even, unlabored, Respiratory pattern is regular, symmetrical, Breath sounds are clear bilaterally. GI: Abdomen is flat, non-distended. : No signs and/or symptoms were reported regarding the genitourinary system. EENT: Throat is pink. Derm: Skin is intact, is healthy with good turgor, Skin is pink, warm \T\ dry. normal. Musculoskeletal: Circulation, motion, and sensation intact. 10/07 01:30 Reassessment: Patient appears in no apparent distress at this time. No changes from previously documented assessment. Patient and/or family updated on plan of care and expected duration. Pain level reassessed. Patient is alert, oriented x 3, equal unlabored respirations, skin warm/dry/pink. 02:20 Reassessment: Patient appears in no apparent distress at this time. Patient and/or family updated on plan of care and expected duration. Pain level reassessed. Patient is alert, oriented x 3, equal unlabored respirations, skin warm/dry/pink. Vital Signs: 10/06 23:55 BP 129 / 92; Pulse 91; Resp 18; Temp 96.9; Pulse Ox 99% ; Weight 52.16 kg; Height 4 ft. 11 in. (149.86 cm); 10/07 01:00 BP 117 / 82; Pulse 61; Resp 18; Pulse Ox 99% on R/A; 02:15 BP 124 / 80; Pulse 59; Resp 18; Pulse Ox 100% on R/A; 10/06 23:55 Body Mass Index 23.23 (52.16 kg, 149.86 cm) ED Course: 10/06 22:58 Patient arrived in ED. cl3 23:48 Jonny Dang MD is Attending Physician. pkl 23:55 Victorino Maki is Primary Nurse. 23:57 Triage completed. 10/07 00:04 Arm band placed on right wrist. 00:04 Patient has correct armband on for positive identification. Bed in low position. Call light in reach. Side rails up X 1. Pulse ox on. NIBP on. 00:32 XRAY CXR (1 view) In Process Unspecified. EDMS 02:37 No provider procedures requiring assistance completed. Patient did not have IV access during this emergency room visit. Administered Medications: No medications were administered Outcome: 02:28 Discharge ordered by . bashir 02:38 Discharged to home ambulatory. 02:38 Condition: stable 02:38 Discharge instructions given to patient, Instructed on discharge instructions, follow up and referral plans. medication usage, POC Demonstrated understanding of instructions, follow-up care, medications, POC Prescriptions given X 1. 02:38 Patient left the ED. Signatures: Dispatcher [employer] EDWI Jonny Dang MD MD pkl [place], Winsy wh Lewis, Charde cl3
--- NOTE | 2020-10-07 02:29 | EDPHYS ---
Physician Documentation [facility] Name: Jazmin Erickson Age: 45 yrs Sex: Female : 1975 Arrival Date: 10/06/2020 Time: 22:58 Bed 20 Private MD: ED Physician Jonny Dang HPI: 10/07 00:11 This 45 yrs old Female presents to ER via Ambulatory with complaints of Sore pkl Throat, Cough. 00:11 The patient or guardian reports cough, described as mild, with productive sputum. pkl Onset: The symptoms/episode began/occurred 3 day(s) ago. Associated signs and symptoms: Pertinent positives: sore throat, dizziness. 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 - Social history:: Smoking status: Patient uses street drugs, marijuana, Patient/guardian denies using. ROS: 10/07 00:11 Eyes: Negative for injury, pain, redness, and discharge. pkl ENT: Positive for sore throat. Neck: Negative for stiffness. Cardiovascular: Negative for chest pain. Respiratory: Positive for cough, with clear sputum. Abdomen/GI: Negative for abdominal pain, nausea, vomiting, and diarrhea. Back: Negative for acute changes. : Negative for urinary symptoms. MS/extremity: Negative for acute changes. Skin: Negative for rash. Neuro: Negative for altered mental status. Exam: 00:11 Head/Face: Normocephalic, atraumatic. Eyes: Pupils equal round and reactive to light, pkl extra-ocular motions intact. Lids and lashes normal. Conjunctiva and sclera are non-icteric and not injected. Cornea within normal limits. Periorbital areas with no swelling, redness, or edema. ENT: Nares patent. No nasal discharge, no septal abnormalities noted. Tympanic membranes are normal and external auditory canals are clear. Oropharynx with no redness, swelling, or masses, exudates, or evidence of obstruction, uvula midline. Mucous membranes moist. Neck: Trachea midline, no thyromegaly or masses palpated, and no cervical lymphadenopathy. Supple, full range of motion without nuchal rigidity, or vertebral point tenderness. No Meningismus. Chest/axilla: Normal chest wall appearance and motion. Nontender with no deformity. No lesions are appreciated. Cardiovascular: Regular rate and rhythm with a normal S1 and S2. No gallops, murmurs, or rubs. Normal PMI, no JVD. No pulse deficits. Respiratory: Lungs have equal breath sounds bilaterally, clear to auscultation and percussion. No rales, rhonchi or wheezes noted. No increased work of breathing, no retractions or nasal flaring. Abdomen/GI: Soft, non-tender, with normal bowel sounds. No distension or tympany. No guarding or rebound. No evidence of tenderness throughout. Back: No spinal tenderness. No costovertebral tenderness. Full range of motion. Skin: Warm, dry with normal turgor. Normal color with no rashes, no lesions, and no evidence of cellulitis. MS/ Extremity: Pulses equal, no cyanosis. Neurovascular intact. Full, normal range of motion. Neuro: Awake and alert, GCS 15, oriented to person, place, time, and situation. Cranial nerves II-XII grossly intact. Motor strength 5/5 in all extremities. Sensory grossly intact. Cerebellar exam normal. Normal gait. Vital Signs: 10/06 23:55 BP 129 / 92; Pulse 91; Resp 18; Temp 96.9; Pulse Ox 99% ; Weight 52.16 kg; Height 4 ft. 11 in. (149.86 cm); 10/07 01:00 BP 117 / 82; Pulse 61; Resp 18; Pulse Ox 99% on R/A; 02:15 BP 124 / 80; Pulse 59; Resp 18; Pulse Ox 100% on R/A; 10/06 23:55 Body Mass Index 23.23 (52.16 kg, 149.86 cm) MDM: 10/06 23:48 Patient medically screened. [place] 10/07 02:27 Data reviewed: vital signs, nurses notes, lab test result(s). pk 10/07 00:09 Order name: Strep; Complete Time: 02:25 pk 10/07 00:09 Order name: D-Dimer; Complete Time: 02:25 pk 10/07 01:45 Order name: Throat Culture EDMS 10/07 02:12 Order name: COVID-19/FLU A+B; Complete Time: 02:25 EDMS 10/07 00:09 Order name: XRAY CXR (1 view) pkl Administered Medications: No medications were administered Disposition: 10/07/20 02:28 Discharged to Home. Impression: Bronchitis. - Condition is Stable. - Prescriptions for Guaifenesin AC 10- 100 mg/5 mL Oral Liquid - take 10 milliliters by ORAL route every 8 hours As needed; 120 milliliter. - Medication Reconciliation Form, Thank You Letter, Antibiotic Education, Prescription Opioid Use, Work release form form. - Follow up: Private Physician; When: 2 - 3 days; Reason: Re-evaluation by your physician. - Problem is new. - Symptoms are unchanged. Signatures: Dispatcher [employer] EDOK Jonny Dang MD MD pkVictorino Day Corrections: (The following items were deleted from the chart) 01:03 00:09 Influenza Screen (A \T\ B)+BA.LAB.BRZ ordered. EDOK EDMS 01:05 00:09 CORONAVIRUS+MR.LAB.BRZ ordered. EDOK EDMS 02:38 02:28 10/07/2020 02:28 Discharged to Home. Impression: Bronchitis. Condition is Stable. wh Forms are Medication Reconciliation Form, Thank You Letter, Antibiotic Education, Prescription Opioid Use. Follow up: Private Physician; When: 2 - 3 days; Reason: Re-evaluation by your physician. Problem is new. Symptoms are unchanged. pkl
[2020-10-07 03:00] VITALS: TEMP 96.9
[2020-10-07 03:04] VITALS: BP 124/80; O2SAT 100
--- NOTE | 2020-10-07 08:53 | RAD REPORT ---
EXAM DESCRIPTION: RAD - Chest Single View - 10/07/2020 12:32 am CLINICAL HISTORY: Cough;Dyspnea Chest pain. COMPARISON: 3D SCR OLIVER BILAT W/CAD dated 10/30/2019; Stone Protocol dated 07/20/2019 FINDINGS: Portable technique limits examination quality. The lungs are grossly clear. The heart is normal in size. No displaced fractures. IMPRESSION: No acute intrathoracic process suspected.
== END 2020-10-07 02:38 | disposition home or self-care (01) ==
LOC: ER 22:56
DX: J40 Bronchitis, not specified as acute or chronic (principal); F12.90 Cannabis use, unspecified, uncomplicated; Z20.822 Contact with and (suspected) exposure to COVID-19
CPT/HCPCS: 87070; 36415; 85379; 87081; 0240U; 71045; 99283

== ENCOUNTER 2021-10-04 09:34 | Emergency (ER) | payer OTHER ==
[2021-10-04 10:52] LABS: SARS-COV-2 RT PCR NEGATIVE (NEGATIVE)
--- NOTE | 2021-10-04 11:33 | RAD REPORT ---
EXAM DESCRIPTION: RAD - Chest Single View - 10/04/2021 11:03 am CLINICAL HISTORY: COUGH COMPARISON: Chest Single View dated 10/07/2020 FINDINGS: Lines: None. Lungs: No evidence of edema or pneumonia. Pleural: No significant pleural effusions or pneumothorax. Cardiac: The heart size is within normal limits. Bones: No acute fractures. Other: IMPRESSION: No acute cardiopulmonary disease.
--- NOTE | 2021-10-04 11:37 | ER ---
Nurse's Notes [facility] Name: Jazmin Erickson Age: 46 yrs Sex: Female : 1975 Arrival Date: 10/04/2021 Time: 09:39 Bed 19 Private MD: Diagnosis: Acute upper respiratory infection, unspecified Presentation: 10/04 09:57 Chief complaint: Patient states: Cough, congestion, fatigue, SOB and upper back pain ss that began 3 days ago. Denies fever/chills. Coronavirus screen: Client indicates they have traveled out of the [place] in the last 14 days. Ebola Screen: Patient denies exposure to infectious person. Patient denies travel to an Ebola-affected area in the 21 days before illness onset. Initial Sepsis Screen: Does the patient meet any 2 criteria? No. Patient's initial sepsis screen is negative. Does the patient have a suspected source of infection? No. Patient's initial sepsis screen is negative. Risk Assessment: Do you want to hurt yourself or someone else? Patient reports no desire to harm self or others. Onset of symptoms was August 31, 2021. 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 - Social history:: Smoking status: Patient denies any tobacco usage or history of. Screenin:20 Abuse screen: Denies threats or abuse. Denies injuries from another. Nutritional jg9 screening: No deficits noted. Tuberculosis screening: No symptoms or risk factors identified. Fall Risk None identified. Assessment: 10:18 General: Appears in no apparent distress. Behavior is calm, cooperative. Pain: jg9 Complains of pain in head. Neuro: Reports dizziness, since 3 x1 day. Cardiovascular: No deficits noted. Capillary refill < 3 seconds. Respiratory: Reports shortness of breath cough that is productive, since 3 days Airway is patent Breath sounds are clear bilaterally. GI: No deficits noted. : No deficits noted. EENT: No deficits noted. Reports difficulty swallowing tender throat possibly related to nasal drainage per patient nasal discharge that is yellow. Derm: No deficits noted. Musculoskeletal: No deficits noted. Vital Signs: 09:57 BP 117 / 76; Pulse 71; Resp 18; Temp 97.6(TE); Pulse Ox 100% on R/A; Weight 52.16 kg; ss Height 4 ft. 11 in. (149.86 cm); 10:15 BP 112 / 77; Pulse 71; Resp 18; Pulse Ox 99% on R/A; jg9 11:15 BP 118 / 74; Pulse 60; Resp 14 S; Pulse Ox 99% on R/A; jg9 09:57 Body Mass Index 23.23 (52.16 kg, 149.86 cm) ED Course: 09:39 Patient arrived in ED. mr 09:43 Adrianna Peterson FNP-C [facility]. kb 09:43 Eagle Gloria MD is Attending Physician. kb 09:59 Triage completed. 09:59 Arm band placed on right wrist. 10:06 Coco Madden is Primary Nurse. jg9 10:24 Patient has correct armband on for positive identification. Bed in low position. Call jg9 light in reach. 10:54 X-ray completed. Portable x-ray completed in exam room. deneen 11:03 Chest Single View XRAY In Process Unspecified. EDMS 11:28 No apparent distress. Resting quietly. Awaiting lab results, Awaiting radiology results.jg9 11:50 No provider procedures requiring assistance completed. jg9 11:51 Patient did not have IV access during this emergency room visit. jg9 Administered Medications: No medications were administered Outcome: 11:37 Discharge ordered by MD. kb 11:51 Discharged to home ambulatory. jg9 11:51 Condition: stable 11:51 Discharge instructions given to patient, Instructed on discharge instructions, Demonstrated understanding of instructions, follow-up care. 11:51 Patient left the ED. jg9 Signatures: Dispatcher [employer] EDMS Adrianna Peterson FNP-C FNP-Anabell CarraMable mr FrenandezAny, RN RN Chary Arce Jennifer jg9
--- NOTE | 2021-10-04 11:38 | EDPHYS ---
Physician Documentation [facility] Name: Jazmin Erickson Age: 46 yrs Sex: Female : 1975 Arrival Date: 10/04/2021 Time: 09:39 Bed 19 Private MD: ED Physician Eagle Gloria HPI: 10/04 10:30 This 46 yrs old Female presents to ER via Ambulatory with complaints of Cough, kb Congestion, Dizziness. 10:30 The patient or guardian reports cough, that is intermittent, described as mild, flu kb symptoms, myalgias. Onset: The symptoms/episode began/occurred 3 day(s) ago. Severity of symptoms: At their worst the symptoms were moderate, in the emergency department the symptoms are unchanged. Modifying factors: The symptoms are alleviated by nothing, the symptoms are aggravated by nothing. Associated signs and symptoms: The patient has no apparent associated signs or symptoms. The patient has not experienced similar symptoms in the past. The patient has not recently seen a physician. Pt reports cough, congestion, bodyaches, shortness of breath and dizziness at times that started 3 days ago. . 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 - Social history:: Smoking status: Patient denies any tobacco usage or history of. ROS: 10:30 Abdomen/GI: Negative for abdominal pain, nausea, vomiting, diarrhea, and constipation. kb 10:30 Constitutional: Positive for body aches, malaise, Negative for chills, fatigue, fever, poor PO intake, weight loss. 10:30 ENT: Positive for sinus congestion. 10:30 Respiratory: Positive for cough, Negative for dyspnea on exertion, hemoptysis, orthopnea, pleurisy, shortness of breath, sputum production, wheezing. 10:30 Neuro: Positive for dizziness. 10:30 All other systems are negative. Exam: 10:30 Constitutional: This is a well developed, well nourished patient who is awake, alert, kb and in no acute distress. Head/Face: Normocephalic, atraumatic. ENT: Moist Mucous membranes Cardiovascular: Regular rate and rhythm with a normal S1 and S2. No gallops, murmurs, or rubs. No pulse deficits. Respiratory: Respirations even and unlabored. No increased work of breathing. Talking in full sentences Skin: Warm, dry with normal turgor. Normal color. MS/ Extremity: Pulses equal, no cyanosis. Neurovascular intact. Full, normal range of motion. Neuro: Awake and alert, GCS 15, oriented to person, place, time, and situation. Moves all extremities. Normal gait. Psych: Awake, alert, with orientation to person, place and time. Behavior, mood, and affect are within normal limits. Vital Signs: 09:57 BP 117 / 76; Pulse 71; Resp 18; Temp 97.6(TE); Pulse Ox 100% on R/A; Weight 52.16 kg; ss Height 4 ft. 11 in. (149.86 cm); 10:15 BP 112 / 77; Pulse 71; Resp 18; Pulse Ox 99% on R/A; jg9 11:15 BP 118 / 74; Pulse 60; Resp 14 S; Pulse Ox 99% on R/A; jg9 09:57 Body Mass Index 23.23 (52.16 kg, 149.86 cm) ss MDM: 09:43 Patient medically screened. kb 10:29 Data reviewed: vital signs, nurses notes. Data interpreted: Pulse oximetry: on room air kb is 99 %. Interpretation: normal. 11:36 Counseling: I had a detailed discussion with the patient and/or guardian regarding: the kb historical points, exam findings, and any diagnostic results supporting the discharge/admit diagnosis, lab results, radiology results, the need for outpatient follow up, a family practitioner, to return to the emergency department if symptoms worsen or persist or if there are any questions or concerns that arise at home. 10/04 09:52 Order name: COVID-19/FLU A+B (Document "Date of Onset" if Symptomatic); Complete Time: kb 10:56 10/04 09:52 Order name: Chest Single View XRAY; Complete Time: 11:36 kb Administered Medications: No medications were administered Disposition: 15:36 Co-signature as Attending Physician, Eagle Gloria MD I agree with the assessment and rn plan of care. Attestation: The patient's history, exam findings, diagnostics, and a summary of any interventions or procedures was reviewed in detail with Adrianna BEJARANO. Disposition Summary: 10/04/21 11:37 Discharge Ordered Location: Home kb Condition: Stable kb Diagnosis - Acute upper respiratory infection, unspecified kb Followup: kb - With: Emergency Department - When: As needed - Reason: Worsening of condition Followup: kb - With: Private Physician - When: 2 - 3 days - Reason: Recheck today's complaints, Continuance of care, Re-evaluation by your physician Discharge Instructions: - Discharge Summary Sheet kb - Upper Respiratory Infection, Adult, [id number] kb - Viral Respiratory Infection, [id number] kb Forms: - Medication Reconciliation Form kb - Thank You Letter kb - Antibiotic Education kb - Prescription Opioid Use kb Signatures: Dispatcher [employer] EDMS Adrianna Peterson FNP-C FNP-Eagle Booker MD MD rn Smirch, Shelby, RN RN ss
[2021-10-04 11:56] VITALS: TEMP 97.6
[2021-10-04 11:57] VITALS: O2SAT 99
[2021-10-04 11:59] VITALS: BP 118/74
== END 2021-10-04 11:51 | disposition home or self-care (01) ==
LOC: ER 09:34
DX: J06.9 Acute upper respiratory infection, unspecified (principal); Z20.822 Contact with and (suspected) exposure to COVID-19
CPT/HCPCS: 0240U; 71045; 99283

== ENCOUNTER 2022-03-21 10:47 | Emergency (ER) | payer OTHER ==
--- NOTE | 2022-03-21 12:22 | RAD REPORT ---
EXAM DESCRIPTION: Ryley Walsh And Lat (2 Views)03/21/2022 12:06 pm CLINICAL HISTORY: Cough COMPARISON: September 2021 FINDINGS: The lungs are mildly to moderately hyperaerated. The lungs appear clear of acute infiltrate. The heart is normal size IMPRESSION: No acute abnormalities displayed
[2022-03-21] MEDS ORDERED: HYDROCODONE/CHLORPHEN 5 ML/OSYR ONE (12:43)
--- NOTE | 2022-03-21 14:16 | ER ---
Nurse's Notes [facility] Name: Jazmin Erickson Age: 46 yrs Sex: Female : 1975 Arrival Date: 03/21/2022 Time: 10:52 Bed 19 Private MD: Diagnosis: SARS-associated coronavirus as the cause of diseases classified elsewhere Presentation: 03/21 11:14 Chief complaint: Patient states: Cough, HOPKINS and stuffy nose that began 2 weeks ago. Pt ss was seen at urgent care given prednisone, was feeling better, but then worse again after prednisone was finished. Pt states she is feeling even worse now than before. Tested negative for COVID 2 days ago. Coronavirus screen: Client denies travel out of the [place] in the last 14 days. Ebola Screen: Patient denies exposure to infectious person. Patient denies travel to an Ebola-affected area in the 21 days before illness onset. Initial Sepsis Screen: Does the patient meet any 2 criteria? No. Patient's initial sepsis screen is negative. Does the patient have a suspected source of infection? No. Patient's initial sepsis screen is negative. Risk Assessment: Do you want to hurt yourself or someone else? Patient reports no desire to harm self or others. Onset of symptoms was March 07, 2022. 11:14 Method Of Arrival: Ambulatory ss 11:14 Acuity: ILYA 3 ss Historical: - Allergies: 11:16 venlafaxine; ss - PMHx: 11:16 Bronchitis; Heart Murmur; ss - PSHx: 11:16 hysterectomy; ss - Immunization history:: Client reports receiving the 2nd dose of the Covid vaccine. - Social history:: Smoking status: Patient denies any tobacco usage or history of. Screenin:40 Abuse screen: Denies threats or abuse. Denies injuries from another. 6 11:40 Nutritional screening: No deficits noted. Tuberculosis screening: No symptoms or risk [facility] factors identified. Fall Risk None identified. Assessment: 11:56 General: Appears in no apparent distress. Behavior is calm, cooperative. Pain: 6 Complains of pain in uvula, left aspect of posterior pharynx and right aspect of posterior pharynx Pain currently is 3 out of 10 on a pain scale. Quality of pain is described as sharp. Cardiovascular: No deficits noted. Capillary refill < 3 seconds Patient's skin is warm and dry. Respiratory: Reports cough that is productive, since 3/4wks Airway is patent Trachea midline Respiratory effort is even, unlabored, Respiratory pattern is regular, symmetrical, Breath sounds are clear Onset: The symptoms/episode began/occurred 3/4 weeks ago. states that she received steroids for a week and was better but after the cough came rt back . 13:00 Reassessment: No changes from previously documented assessment. Patient and/or family 6 updated on plan of care and expected duration. Pain level reassessed. 14:00 Reassessment: Patient and/or family updated on plan of care and expected duration. Pain jh6 level reassessed. Patient is alert, oriented x 3, equal unlabored respirations, skin warm/dry/pink. Patient states feeling better. reporting that the cough med that was given did help a little and has been able to rest. . Vital Signs: 11:14 BP 127 / 87; Pulse 71; Resp 16; Temp 98.2(TE); Pulse Ox 100% on R/A; Weight 52.16 kg; ss Height 4 ft. 11 in. (149.86 cm); Pain 7/10; 13:00 BP 122 / 74; Pulse 76; Resp 16; Pulse Ox 100% ; Pain 3/10; jh6 11:14 Body Mass Index 23.23 (52.16 kg, 149.86 cm) ED Course: 10:52 Patient arrived in ED. mr 11:03 Brigido Wood PA is PHCP. cp 11:03 Eagle Gloria MD is Attending Physician. cp 11:15 Triage completed. ss 11:16 Arm band placed on right wrist. ss 11:40 Bed in low position. Call light in reach. 6 11:45 Coco Pennington, RN is Primary Nurse. 6 11:51 Strep Sent. jh6 11:51 Influenza Screen (a \\T\\ B) Sent. 6 11:51 COVID-19 SARS RT PCR (Document "Date of Onset" if Symptomatic) Sent. 6 11:59 Patient moved to radiology. 6 12:08 XRAY Chest Pa And Lat (2 Views) In Process Unspecified. EDMS 14:20 Patient did not have IV access during this emergency room visit. [facility] Administered Medications: 12:37 Drug: Tussionex Pennkinetic ER (chlorpheniramine-hydrocodone) Suspension 5 ml Route: PO;[facility] Outcome: 14:16 Discharge ordered by . sourav 14:20 Discharged to home ambulatory. [facility] 14:20 Condition: stable [facility] 14:20 Discharge instructions given to patient, Instructed on discharge instructions, follow up and referral plans. Demonstrated understanding of instructions, follow-up care, medications, Prescriptions given X 2, Following a medical screening exam, the patient was provided information regarding alternative care sites and resources available per registration personnel. 15:03 Patient left the ED. [facility] Signatures: Dispatcher [employer] EDID Mable Amato Any Fernandez RN RN ss Brigido Wood PA PA cp Hastedt, Jennifer RN RN [facility] Corrections: (The following items were deleted from the chart) 11:18 11:14 Acuity: ILYA 4 ss ss
--- NOTE | 2022-03-21 14:16 | EDPHYS ---
Physician Documentation [facility] Name: Jazmin Erickson Age: 46 yrs Sex: Female : 1975 Arrival Date: 03/21/2022 Time: 10:52 Bed 19 Private MD: ED Physician Eagle Gloria HPI: 03/21 11:45 This 46 yrs old Female presents to ER via Ambulatory with complaints of Cough, cp Congestion. 11:45 The patient or guardian reports cough, that is intermittent, with productive sputum, cp that is purulent, nasal and chest congestion. Onset: The symptoms/episode began/occurred 2 week(s) ago. 11:45 Severity of symptoms: in the emergency department the symptoms are unchanged, despite cp home interventions. 11:45 Patient reports she took prescribed steroids, with symptoms worsening. Seen at urgent cp care 2 days ago and tested negative for COVID-19. Historical: - Allergies: 11:16 venlafaxine; ss - PMHx: 11:16 Bronchitis; Heart Murmur; ss - PSHx: 11:16 hysterectomy; ss - Immunization history:: Client reports receiving the 2nd dose of the Covid vaccine. - Social history:: Smoking status: Patient denies any tobacco usage or history of. ROS: 11:50 Constitutional: Positive for body aches, poor PO intake, Negative for fever. cp 11:50 Eyes: Negative for injury, pain, redness, and discharge. cp 11:50 ENT: Positive for sore throat, Negative for drainage from ear(s), ear pain, difficulty swallowing, difficulty handling secretions. 11:50 Cardiovascular: Negative for chest pain, palpitations. 11:50 Respiratory: Positive for cough, "sounds productive", Negative for wheezing. 11:50 Abdomen/GI: Negative for abdominal pain, vomiting, diarrhea, constipation. 11:50 Neuro: Negative for altered mental status, headache, weakness. 11:50 All other systems are negative. Exam: 11:55 Constitutional: The patient appears in no acute distress, alert, awake, cp non-diaphoretic, non-toxic, well developed, well nourished. 11:55 Head/Face: Normocephalic, atraumatic. cp 11:55 Eyes: Periorbital structures: appear normal, Conjunctiva: normal, no exudate, no injection, Sclera: no appreciated abnormality, Lids and lashes: appear normal, bilaterally. 11:55 ENT: External ear(s): are unremarkable, Ear canal(s): are normal, clear, TM's: dullness, bilaterally, Nose: is normal, Mouth: Lips: moist, Oral mucosa: moist, Posterior pharynx: Airway: no evidence of obstruction, patent, Tonsils: no enlargement, no exudate, erythema, that is mild, exudate, is not appreciated. 11:55 Neck: ROM/movement: is normal, is supple, without pain, no range of motions limitations, no meningismus. 11:55 Chest/axilla: Inspection: normal. 11:55 Cardiovascular: Rate: normal, Rhythm: regular. 11:55 Respiratory: the patient does not display signs of respiratory distress, Respirations: normal, no use of accessory muscles, no retractions, labored breathing, is not present, Breath sounds: decreased breath sounds, are not appreciated, stridor, is not appreciated, + upper airway congestion. wheezing: is not appreciated. 11:55 Abdomen/GI: Inspection: abdomen appears normal, Palpation: abdomen is soft and non-tender, in all quadrants. Vital Signs: 11:14 BP 127 / 87; Pulse 71; Resp 16; Temp 98.2(TE); Pulse Ox 100% on R/A; Weight 52.16 kg; ss Height 4 ft. 11 in. (149.86 cm); Pain 7/10; 13:00 BP 122 / 74; Pulse 76; Resp 16; Pulse Ox 100% ; Pain 3/10; jh6 11:14 Body Mass Index 23.23 (52.16 kg, 149.86 cm) ss MDM: 11:23 Patient medically screened. cp 14:15 Data reviewed: vital signs, nurses notes, lab test result(s), radiologic studies, plain cp films. 14:15 Test interpretation: by ED physician or midlevel provider: plain radiologic studies. cp 03/21 11:41 Order name: COVID-19 SARS RT PCR (Document "Date of Onset" if Symptomatic); Complete cp Time: 14:12 03/21 11:41 Order name: Influenza Screen (a \\T\\ B); Complete Time: 12:25 cp 03/21 11:41 Order name: XRAY Chest Pa And Lat (2 Views); Complete Time: 12:25 cp 03/21 12:25 Interpretation: Report reviewed. cp 03/21 11:41 Order name: Strep; Complete Time: 12:25 cp 03/21 12:25 Order name: Throat Culture EDMS Administered Medications: 12:37 Drug: Tussionex Pennkinetic ER (chlorpheniramine-hydrocodone) Suspension 5 ml Route: PO;jh6 Disposition Summary: 03/21/22 14:16 Discharge Ordered Location: Home cp Problem: new cp Symptoms: have improved cp Condition: Stable cp Diagnosis - SARS-associated coronavirus as the cause of diseases classified elsewhere cp Followup: cp - With: Private Physician - When: 2 - 3 days - Reason: Worsening of condition Discharge Instructions: - Discharge Summary Sheet cp - Aspirin and Your Heart cp - COVID-19 cp - Things to Know about the COVID-19 Pandemic - [facility] cp - 10 Things You Can Do to Manage Your COVID-19 Symptoms at Home - [facility] cp - COVID-19: Quarantine vs. Isolation - [facility] cp - Prevent the Spread of COVID-19 if You Are Sick - [facility] cp Forms: - Medication Reconciliation Form cp - Thank You Letter cp - Antibiotic Education cp - Prescription Opioid Use cp - Work release form jh6 Prescriptions: - Bromfed DM 2-30-10 mg/5 mL Oral syrup - take 10 milliliter by ORAL route every 6 hours; 180 milliliter; Refills: 0, cp Product Selection Permitted - Zithromax Z-Franki 250 mg Oral Tablet - take 1 tablet by ORAL route as directed for 5 days Day 1 - take two (2) tablets cp one time. Day 2, 3, 4 , 5 take one (1) tablet once daily.; 6 tablet; Refills: 0, Product Selection Permitted Addendum: 03/23/2022 07:12 Co-signature as Attending Physician, Eagle Gloria MD. r n Signatures: Dispatcher [employer] EDMS Eagle Gloria MD MD rn Smirch, Shelby, RN RN ss Page, Corey, PA PA cp Coco Pennington RN RN jh
[2022-03-21 15:11] VITALS: TEMP 98.2; O2SAT 100
[2022-03-21 15:13] VITALS: BP 122/74
== END 2022-03-21 15:03 | disposition home or self-care (01) ==
LOC: ER 10:47
DX: U07.1 COVID-19 (principal); Z88.8 Allergy status to other drugs, medicaments and biological substances
CPT/HCPCS: 87070; 87081; 87804 ×2; 71046; 99284; U0003

== ENCOUNTER 2022-09-30 15:02 | Emergency (ER) | payer OTHER ==
[2022-09-30 16:30] LABS: SARS-COV-2 RT PCR NEGATIVE (NEGATIVE)
--- NOTE | 2022-09-30 16:39 | EDPHYS ---
Physician Documentation [facility] Name: Jazmin Landeros Age: 47 yrs Sex: Female : 1975 Arrival Date: 09/30/2022 Time: 15:03 Bed 17 Private MD: ED Physician Eagle Gloria HPI: 09/30 15:17 This 47 yrs old Female presents to ER via Unassigned with complaints of Cough. en 15:17 47 yo F presents to ED with wet cough x 3 days with intermittent clear sputum. Chest en tightness without SOB or HE. No trouble breathing. + post-tussive emesis and chest sore when coughing only. No fever, + chills and Body aches. + COVID exposure at work. Historical: - Allergies: 15:30 venlafaxine; kr3 - PMHx: 15:30 Bronchitis; Heart Murmur; kr3 - PSHx: 15:30 hysterectomy; kr3 - Immunization history:: Adult Immunizations not up to date. - Social history:: Smoking status: Patient/guardian denies using tobacco, the patient reports quitting approximately 20 years ago. ROS: 15:17 Constitutional: Neg Fever + Chills and body aches Eyes: Negative for injury, pain, en redness, and discharge, ENT: Negative for injury, pain, and discharge, Cardiovascular: Negative for chest pain, palpitations, and edema, Respiratory: wet cough, chest tightness, chest sore from cough. No wheezing or HE Exam: 15:17 Constitutional: This is a well developed, well nourished patient who is awake, alert, en and in no acute distress. Head/Face: Normocephalic, atraumatic. Eyes: Pupils equal round and reactive to light, extra-ocular motions intact. Lids and lashes normal. Conjunctiva and sclera are non-icteric and not injected. Cornea within normal limits. Periorbital areas with no swelling, redness, or edema. ENT: Nares patent. No nasal discharge, no septal abnormalities noted. Tympanic membranes are normal and external auditory canals are clear. Oropharynx with no redness, swelling, or masses, exudates, or evidence of obstruction, uvula midline. Mucous membranes moist. Neck: Trachea midline, no thyromegaly or masses palpated, and no cervical lymphadenopathy. Supple, full range of motion without nuchal rigidity, or vertebral point tenderness. No Meningismus. Cardiovascular: Regular rate and rhythm with a normal S1 and S2. No gallops, murmurs, or rubs. Normal PMI, no JVD. No pulse deficits. Respiratory: Lungs have equal breath sounds bilaterally, clear to auscultation and percussion. No rales, rhonchi or wheezes noted. No increased work of breathing, no retractions or nasal flaring. Abdomen/GI: Soft, non-tender, with normal bowel sounds. No distension or tympany. No guarding or rebound. No evidence of tenderness throughout. Vital Signs: 15:26 BP 119 / 91; Pulse 77; Resp 18; Temp 98.4(TE); Pulse Ox 98% on R/A; Weight 53.07 kg; kr3 Height 4 ft. 11 in. (149.86 cm); Pain 4/10; 15:35 BP 120 / 73; Pulse 70; Resp 18; Temp 98.3; Pulse Ox 99% on R/A; eh3 16:30 BP 101 / 73; Pulse 69; Resp 18; Pulse Ox 99% on R/A; ss 15:26 Body Mass Index 23.63 (53.07 kg, 149.86 cm) kr3 MDM: 15:17 Differential Diagnosis: Bronchitis Influenza Upper Respiratory Infection Sinusitis en Asthma Exacerbation Viral Syndrome Pneumonia Other COVID. Data reviewed: vital signs, nurses notes, lab test result(s), radiologic studies, CT scan, plain films. ED course: 47 yo F with cough and COVID exposure. Lungs CTA, no respiratory distress. Will get CXR to r/o PNA and check for covid. 15:28 Patient medically screened. en 16:36 Data reviewed: lab test result(s), COVID, Flu, RSV negative, radiologic studies, plain en films, CXR interpretation by me: ANTONELLA. . ED course: reviewed imaging and labs with pt. Will d/c home with cough meds, inhaler. no abx warranted at this time. ER return warnings reviewed. . 09/30 15:17 Order name: COVID-19/FLU A+B; Complete Time: 16:36 en 09/30 15:17 Order name: CXR XRAY en Administered Medications: No medications were administered Disposition: 17:34 Co-signature as Attending Physician, Eagle Gloria MD. rn Disposition Summary: 09/30/22 16:38 Discharge Ordered Location: Home en Problem: new en Symptoms: are unchanged en Condition: Stable en Diagnosis - Acute upper respiratory infection, unspecified en Followup: en - With: Private Physician - When: As needed - Reason: Re-evaluation by your physician Discharge Instructions: - Discharge Summary Sheet en - Viral Respiratory Infection en - Upper Respiratory Infection, Pediatric, [id number] en Forms: - Medication Reconciliation Form en - Thank You Letter en - Antibiotic Education en - Prescription Opioid Use en Prescriptions: - ProAir HFA 90 mcg/actuation Inhalation HFA aerosol inhaler - inhale 2 puff by INHALATION route every 3-4 hours; 1 Inhaler; Refills: 0, en Product Selection Permitted - Tessalon Perles 100 mg Oral Capsule - take 1 capsule by ORAL route every 8 hours As needed; 15 capsule; Refills: 0, en Product Selection Permitted Signatures: Dispatcher [employer] EDMS Eagle Gloria MD MD rn Newkirk, Elizabeth, PA PA en Reid, Kelley RN RN kr3
--- NOTE | 2022-09-30 16:39 | ER ---
Nurse's Notes [facility] Name: Jazmin Landeros Age: 47 yrs Sex: Female : 1975 Arrival Date: 09/30/2022 Time: 15:03 Bed 17 Private MD: Diagnosis: Acute upper respiratory infection, unspecified Presentation: 09/30 15:26 Chief complaint: Patient states: I have a cough, congestion and headache x 3 days. It kr3 started a s a tickle in my throat that has now developed in to a really bad cough. Coronavirus screen: Vaccine status: Patient reports receiving the 2nd dose of the covid vaccine. Client denies travel out of the [place] in the last 14 days. Ebola Screen: Patient denies travel to an Ebola-affected area in the 21 days before illness onset. Initial Sepsis Screen: Does the patient meet any 2 criteria? No. Patient's initial sepsis screen is negative. Does the patient have a suspected source of infection? Yes: Productive cough/pneumonia. Risk Assessment: Do you want to hurt yourself or someone else? Patient reports no desire to harm self or others. Onset of symptoms was September 28, 2022. 15:26 Method Of Arrival: Ambulatory kr3 15:26 Acuity: ILYA 4 kr3 Triage Assessment: 15:31 General: Appears in no apparent distress. comfortable, Behavior is calm, cooperative, kr3 appropriate for age. Historical: - Allergies: 15:30 venlafaxine; kr3 - PMHx: 15:30 Bronchitis; Heart Murmur; kr3 - PSHx: 15:30 hysterectomy; kr3 - Immunization history:: Adult Immunizations not up to date. - Social history:: Smoking status: Patient/guardian denies using tobacco, the patient reports quitting approximately 20 years ago. Screenin:35 [facility] ED Fall Risk Assessment (Adult) History of falling in the last 3 months, eh3 including since admission No falls in past 3 months (0 pts) Confusion or Disorientation No (0 pts) Intoxicated or Sedated No (0 pts) Impaired Gait No (0 pts) Mobility Assist Device Used No (0 pt) Altered Elimination No (0 pt) Score/Fall Risk Level 0 - 2 = Low Risk. Abuse screen: Denies threats or abuse. Denies injuries from another. Nutritional screening: No deficits noted. Tuberculosis screening: No symptoms or risk factors identified. Assessment: 15:35 General: Appears in no apparent distress. uncomfortable, Behavior is calm, cooperative, eh3 appropriate for age. Pain: Complains of pain in throat. Neuro: Level of Consciousness is awake, alert, obeys commands, Oriented to person, place, time, situation. Cardiovascular: Capillary refill < 3 seconds Patient's skin is warm and dry. Respiratory: Reports cough that is productive, Airway is patent Respiratory effort is even, unlabored, Respiratory pattern is regular, symmetrical. GI: No signs and/or symptoms were reported involving the gastrointestinal system. Abdomen is flat, non-distended. : No signs and/or symptoms were reported regarding the genitourinary system. EENT: Throat is reddened. Derm: No signs and/or symptoms reported regarding the dermatologic system. Musculoskeletal: No signs and/or symptoms reported regarding the musculoskeletal system. Circulation, motion, and sensation intact. Range of motion: intact in all extremities. 16:30 Reassessment: Patient appears in no apparent distress at this time. Patient and/or ss family updated on plan of care and expected duration. Pain level reassessed. Patient is alert, oriented x 3, equal unlabored respirations, skin warm/dry/pink. Vital Signs: 15:26 BP 119 / 91; Pulse 77; Resp 18; Temp 98.4(TE); Pulse Ox 98% on R/A; Weight 53.07 kg; kr3 Height 4 ft. 11 in. (149.86 cm); Pain 4/10; 15:35 BP 120 / 73; Pulse 70; Resp 18; Temp 98.3; Pulse Ox 99% on R/A; eh3 16:30 BP 101 / 73; Pulse 69; Resp 18; Pulse Ox 99% on R/A; ss 15:26 Body Mass Index 23.63 (53.07 kg, 149.86 cm) kr3 ED Course: 15:03 Patient arrived in ED. rg4 15:10 Gabby Dela Cruz PA is PHCP. en 15:10 Eagle lGoria MD is Attending Physician. en 15:30 Triage completed. kr3 15:34 Teri Curiel, JUDITH is Primary Nurse. eh3 15:35 Patient has correct armband on for positive identification. Bed in low position. Call eh3 light in reach. Pulse ox on. NIBP on. Door closed. Noise minimized. Warm blanket given. 16:20 CXR XRAY In Process Unspecified. EDMS 16:49 Arm band placed on. ss 16:49 No provider procedures requiring assistance completed. Patient did not have IV access ss during this emergency room visit. Administered Medications: No medications were administered Medication: 16:49 VIS not applicable for this client. ss Outcome: 16:38 Discharge ordered by . en 16:50 Discharged to home ambulatory. ss 16:50 Condition: stable 16:50 Discharge instructions given to patient, Instructed on discharge instructions, follow up and referral plans. medication usage, Demonstrated understanding of instructions, follow-up care, medications, Prescriptions given X 2. 16:50 Patient left the ED. ss Signatures: Dispatcher [employer] EDMS Any Fernandez, RN RN Gem Darden rg4 Teri Curiel RN RN eh3 Gabby Dela Cruz PA PA en Reid, Kelley RN RN kr3
[2022-09-30 16:56] VITALS: TEMP 98.3; O2SAT 99
[2022-09-30 16:57] VITALS: BP 101/73
--- NOTE | 2022-09-30 16:58 | RAD REPORT ---
EXAM DESCRIPTION: RAD - Chest Single View - 09/30/2022 4:18 pm CLINICAL HISTORY: COUGH COMPARISON: Two view chest 03/21/2022 TECHNIQUE: AP portable chest image was obtained 09/30/2022 4:18 pm . FINDINGS: Lungs are clear. Heart and vasculature are normal. No measurable pleural effusion and no p neumothorax. No acute bony abnormality seen. No acute aortic findings suspected. IMPRESSION: No acute cardiopulmonary process. No significant change from comparison study.
== END 2022-09-30 16:50 | disposition home or self-care (01) ==
LOC: ER 15:02
DX: J06.9 Acute upper respiratory infection, unspecified (principal); Z20.822 Contact with and (suspected) exposure to COVID-19; Z88.8 Allergy status to other drugs, medicaments and biological substances
CPT/HCPCS: 0240U; 71045; 99283

== ENCOUNTER → 2023-12-11 | Emergency (ER) | payer BC ==
--- OUTSIDE RECORDS SUMMARY | 2023-12-11 15:05 | XMS REPORT | Continuity of Care Document ---
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
[2023-12-11 15:40] LABS: Specific Gravity 1.007 (1.005-1.030); Urine Bacteria <20 /HPF (<20); Urine Bilirubin NEGATIVE (Negative); Urine Blood 2+ (Negative); Urine Clarity Extremely Turbid (Clear); Urine Color Colorless (Yellow); Urine Glucose NEGATIVE (Negative); Urine Protein TRACE (Negative); Urine Urobilinogen Normal (Normal); Urine WBC Clump Moderate /HPF (None Seen)
--- NOTE | 2023-12-11 15:57 | ER ---
Nurse's Notes [facility] Name: Jazmin Landeros Age: 48 yrs Sex: Female : 1975 Arrival Date: 12/11/2023 Time: 15:03 Bed 9 Private MD: Diagnosis: UTI/ Urinary tract infection, site not specified Presentation: 12/10 15:11 Chief complaint: Patient states: pain and burning with urination X4-5 days. Coronavirus iw screen: At this time, the client does not indicate any symptoms associated with coronavirus-19. Ebola Screen: Patient negative for fever greater than or equal to 101.5 degrees Fahrenheit, and additional compatible Ebola Virus Disease symptoms Patient denies exposure to infectious person. Patient denies travel to an Ebola-affected area in the 21 days before illness onset. No symptoms or risks identified at this time. Initial Sepsis Screen: Does the patient meet any 2 criteria? No. Patient's initial sepsis screen is negative. Does the patient have a suspected source of infection? No. Patient's initial sepsis screen is negative. Risk Assessment: Do you want to hurt yourself or someone else? Patient reports no desire to harm self or others. Onset of symptoms. 15:11 Method Of Arrival: Ambulatory iw 15:11 Acuity: ILYA 3 iw Triage Assessment: 15:31 General: Appears in no apparent distress. Behavior is calm, cooperative, appropriate iw for age. Pain:. Historical: - Allergies: 15:12 venlafaxine; iw - PMHx: 15:12 Bronchitis; Heart Murmur; iw - PSHx: 15:12 hysterectomy; iw - Immunization history:: Adult Immunizations unknown. - Social history:: Smoking status: Patient denies any tobacco usage or history of. Screenin:31 [facility] ED Fall Risk Assessment (Adult) History of falling in the last 3 months, iw including since admission No falls in past 3 months (0 pts) Confusion or Disorientation No (0 pts) Intoxicated or Sedated No (0 pts) Impaired Gait No (0 pts) Mobility Assist Device Used No (0 pt) Altered Elimination No (0 pt) Score/Fall Risk Level 0 - 2 = Low Risk Oriented to surroundings, Maintained a safe environment, Educated pt \T\ family on fall prevention, incl call for assistance when getting out of bed, Assessed \T\ reinforced patient's understanding of fall precautions, Provided non-skid footwear, Hourly rounding (assess needs \T\ fall precautionary measures) done, Used ambulatory aids as needed (educated on \T\ assisted with), Used gait belt as appropriate. Abuse screen: Denies threats or abuse. Denies injuries from another. Nutritional screening: No deficits noted. Tuberculosis screening: No symptoms or risk factors identified. Assessment: 15:31 General: Appears in no apparent distress. Behavior is calm, cooperative, appropriate iw for age. Pain: Complains of pain in pelvis. Neuro: No deficits noted. Cardiovascular: No deficits noted. Respiratory: No deficits noted. GI: No deficits noted. : Reports burning with urination. EENT: No deficits noted. Derm: No deficits noted. Musculoskeletal: No deficits noted. Vital Signs: 15:11 BP 123 / 81; Pulse 73; Resp 16; Temp 97.6; Pulse Ox 99% on R/A; iw 15:58 BP 118 / 78; Pulse 75; Resp 14; Temp 97; Pulse Ox 100% ; ko1 ED Course: 15:05 Patient arrived in ED. ae5 15:06 Santi Marin MD is Attending Physician. ec2 15:12 Triage completed. iw 15:12 Arm band placed on. iw 15:26 Kenya Horn, RN is Primary Nurse. iw 15:26 [facility] Sent. iw 15:29 Urine collected: clean catch specimen, clear. aw1 15:31 Patient has correct armband on for positive identification. Allergy band placed. Bed in iw low position. Call light in reach. Side rails up X 1. Provided Education on: na. Pulse ox on. NIBP on. Door closed. Noise minimized. Lights dimmed. 15:31 No provider procedures requiring assistance completed. Patient did not have IV access iw during this emergency room visit. Administered Medications: No medications were administered Medication: 15:31 VIS not applicable for this client. iw Outcome: 15:56 Discharge ordered by . ec2 15:58 Discharged to home ambulatory, ko1 15:58 Condition: stable 15:58 Discharge instructions given to patient, Instructed on discharge instructions, follow up and referral plans. medication usage, Demonstrated understanding of instructions, follow-up care, medications, Prescriptions given X 3, 16:03 Patient left the ED. ko1 Signatures: Kory, KenyaJUDITH pace RN, Kathy, RN RN ko1 Katy Haney aw1 Santi Marin MD MD ec2 Rebecca Peres ae5 Corrections: (The following items were deleted from the chart) 15:12 15:11 Acuity: ILYA 4 [facility] 15:14 15:11 Chief complaint: Patient states: pain and burning with urination [facility]
--- NOTE | 2023-12-11 15:57 | EDPHYS ---
Physician Documentation [facility] Name: Jazmin Landeros Age: 48 yrs Sex: Female : 1975 Arrival Date: 12/11/2023 Time: 15:03 Bed 9 Private MD: ED Physician Santi Marin HPI: 12/10 15:15 This 48 yrs old Female presents to ER via Ambulatory with complaints of ec2 Possible UTI. 15:15 Patient arrives today for evaluation of urinary complaints. Patient reports dysuria and ec2 increased frequency. Patient reports some associated nausea, no vomiting. Denies any significant abdominal pain, denies with p.o. intake.. Historical: - Allergies: 15:12 venlafaxine; iw - PMHx: 15:12 Bronchitis; Heart Murmur; iw - PSHx: 15:12 hysterectomy; iw - Immunization history:: Adult Immunizations unknown. - Social history:: Smoking status: Patient denies any tobacco usage or history of. ROS: 15:15 Constitutional: as per hpi ec2 Exam: 15:15 Constitutional: GEN: NAD Head: atraumatic Eyes: EOMI Ears: External ears are ec2 normal. CV: regular rate LUNGS: no respiratory distress ABD: non-distended, soft, nontender, guarding, not rigid SKIN: no evidence of rashes MSK: no evidence of trauma NEURO: moves all extremities equally Vital Signs: 15:11 BP 123 / 81; Pulse 73; Resp 16; Temp 97.6; Pulse Ox 99% on R/A; iw 15:58 BP 118 / 78; Pulse 75; Resp 14; Temp 97; Pulse Ox 100% ; ko1 MDM: 15:07 Patient medically screened. ec2 15:15 Data reviewed: vital signs. ED course: Patient arrives today due to concern for urinary ec2 complaints. Examination remarkable for well-appearing nontoxic dividual is otherwise in no acute distress. Will obtain urine study to evaluate for UTI. Doubt given age. Doubt intra-abdominal process given generally soft abdomen.. 15:56 ED course: Urine infectious appearing will discharge home. Return precautions given. ec2 12/10 15:07 Order name: UAM; Complete Time: 15:56 ec2 12/10 15:43 Order name: Urine Culture EDMS Administered Medications: No medications were administered Disposition Summary: 12/11/23 15:56 Discharge Ordered Notes: Location: Home ec2 Problem: new ec2 Symptoms: are unchanged ec2 Condition: Stable ec2 Diagnosis - UTI/ Urinary tract infection, site not specified ec2 Followup: ec2 - With: Private Physician - When: - Reason: Recheck today's complaints Discharge Instructions: - Discharge Summary Sheet ec2 - Urinary Tract Infection, Adult, [id number] ec2 Forms: - Medication Reconciliation Form ec2 - Thank You Letter ec2 - Antibiotic Education ec2 - Prescription Opioid Use ec2 - Patient Portal Instructions ec2 - Leadership Thank You Letter ec2 Prescriptions: - Cephalexin 500 mg Oral capsule - take 1 capsule ORAL route every 12 hours for 5 days; 10 capsule; Refills: 0, ec2 Product Selection Permitted - Pyridium 200 mg Oral Tablet - take 1 tablet ORAL route every 8 hours for 3 days; 9 tablet; Refills: 0, ec2 Product Selection Permitted - Zofran 4 mg Oral Tablet - take 1 tablet ORAL route every 12 hours As needed; 20 tablet; Refills: 0, ec2 Product Selection Permitted Signatures: Dispatcher [employer] Kenya Tompkins, JUDITH RN Santi Stubbs MD MD ec2
[2023-12-11 16:25] VITALS: BP 118/78; TEMP 97; O2SAT 100
== END ==
LOC: ER 15:03
DX: N39.0 Urinary tract infection, site not specified (principal); Z88.8 Allergy status to other drugs, medicaments and biological substances
CPT/HCPCS: 81001; 87086; 87088